=== PATIENT | female | born 1960 | race Caucasian/White ===

== ENCOUNTER → 2016-09-17 | Outpatient (CLI) | payer BC ==
--- NOTE | 2016-09-18 10:12 | MM ---
Reason for exam: screening (asymptomatic). Last mammogram was performed 1 year and 1 month ago. History: Patient is postmenopausal. Family history of breast cancer in maternal grandmother. Took estrogen for 2 years. Physical Findings: A clinical breast exam by your physician is recommended on an annual basis and results should be correlated with mammographic findings. MG Screening Mammo w CAD Bilateral CC and MLO view(s) were taken. Prior study comparison: August 28, 2015, bilateral MG screening mammo w CAD. August 14, 2014, bilateral MG screening mammo w CAD. There are scattered fibroglandular densities. There is no discrete abnormality. No significant changes when compared with prior studies. ASSESSMENT: Negative, BI-RAD 1 RECOMMENDATION: Routine screening mammogram of both breasts in 1 year.
== END | disposition home or self-care (01) ==
LOC: RADMAMWWP 07:21
PROVIDERS: ATTEND Internal Medicine
DX: Z12.31 Encounter for screening mammogram for malignant neoplasm of breast (principal)

== ENCOUNTER 2016-11-15 12:35 | Emergency (ER) | payer BC ==
[2016-11-15] MEDS ORDERED: PANTOPRAZOLE 40 MG/10 ML VIAL IVP STA (13:26)
[2016-11-15] MEDS ORDERED: SODIUM CHLORIDE 0.9% 1,000 ML IV STA (13:26)
[2016-11-15] MEDS ORDERED: RX INFO: IV CONTRAST WAS GIVEN 1 EACH MISC MISCELLANE PRN (13:28)
--- NOTE | 2016-11-15 13:35 | ED ---
Abdominal Pain HPI - General Chief Complaint: Abdominal Pain Stated Complaint: kidney stones Time Seen by Provider: 11/15/16 13:12 Source: patient Mode of arrival: ambulatory Limitations: no limitations - History of Present Illness Initial Comments: 56-year-old female patient presents to emergency department today for evaluation of lower abdominal pain, epigastric pain, and bloody diarrhea. Patient states that symptoms started around 0400 this a.m. Patient denies any history of GI bleed or transfusion in the past. Patient states she went to [facility] where they performed a KUB XR and a urinalysis. They also gave her pain and nausea medications. Her symptoms have improved, however [facility] recommended she come in for a CT scan. Patient did just provide a urine sample, she states when she did this she had an episode of diarrhea with a large blood clot present. Patient denies any dizziness or weakness. She denies any chest, back pain, shortness of breath, hematuria, dysuria, urinary urgency or urinary frequency. She denies any hx of abdominal issues or surgeries. Denies use of anticoagulants. - Related Data Home Medications Medication Instructions Recorded Confirmed Citalopram Hydrobromide 40 mg PO HS 03/26/16 11/15/16 [Citalopram HBr] Ketorolac [Toradol] 30 mg IM ONCE 11/15/16 11/15/16 Metoprolol Tartrate [Lopressor] 25 mg PO BID 11/15/16 11/15/16 Previous Rx's Medication Instructions Recorded Ciprofloxacin HCl [Cipro] 500 mg PO Q12HR #20 tablet 11/15/16 Hydrocodone/Acetaminophen [Culebra 1 tab PO Q6HR PRN #15 tab 11/15/16 5-325] Ondansetron Odt [Zofran Odt] 4 mg PO Q8HR PRN #10 tab 11/15/16 metroNIDAZOLE [Flagyl] 500 mg PO TID #30 tab 11/15/16 Allergies Allergy/AdvReac Type Severity Reaction Status Date / Time No Known Allergies Allergy Verified 11/15/16 13:08 Review of Systems ROS Statement: Those systems with pertinent positive or pertinent negative responses have been documented in the HPI. ROS Other: All systems not noted in ROS Statement are negative. Past Medical History Past Medical History: No Reported History History of Any Multi-Drug Resistant Organisms: None Reported Past Surgical History: Hysterectomy Past Psychological History: Anxiety, Depression Smoking Status: Former smoker Past Alcohol Use History: Heavy Past Drug Use History: None Reported General Exam Limitations: no limitations General appearance: alert, in no apparent distress Head exam: Present: atraumatic, normocephalic, normal inspection Eye exam: Present: normal appearance, PERRL, EOMI. Absent: scleral icterus, conjunctival injection, periorbital swelling ENT exam: Present: normal exam, mucous membranes moist Neck exam: Present: normal inspection. Absent: tenderness, meningismus, lymphadenopathy Respiratory exam: Present: normal lung sounds bilaterally. Absent: respiratory distress, wheezes, rales, rhonchi, stridor Cardiovascular Exam: Present: regular rate, normal rhythm, normal heart sounds. Absent: systolic murmur, diastolic murmur, rubs, gallop, clicks GI/Abdominal exam: Present: soft, tenderness (Epigastric, right lower quadrant, left lower quadrant.), normal bowel sounds. Absent: distended, guarding, rebound, rigid, organomegaly, mass, hernia Rectal exam: Present: normal inspection, normal rectal tone, heme (+) stool, bloody stool. Absent: decreased rectal tone, hemorrhoids, mass, tenderness Extremities exam: Present: normal inspection, full ROM, normal capillary refill. Absent: tenderness, pedal edema, joint swelling, calf tenderness Back exam: Present: normal inspection. Absent: CVA tenderness (R), CVA tenderness (L) Neurological exam: Present: alert, oriented X3, CN II-XII intact Psychiatric exam: Present: normal affect, normal mood Skin exam: Present: warm, dry, intact, normal color. Absent: rash Course Vital Signs 11/15/16 12:38 Temperature 98.1 F Pulse Rate 80 Respiratory 17 Rate Blood Pressure 185/84 O2 Sat by Pulse 96 Oximetry Medical Decision Making - Medical Decision Making 48-year-old female presented emergency from for abdominal pain, rectal bleeding patient appears or clicks CT. Patient be treated as this is bacterial infection. Patient we given Cipro, Flagyl. Return parameters were discussed. Patient's hemoglobin is stable at 15. Patient presents to plan patient will follow-up with Dr. Storey followed was performed her colonoscopies in the past. - Lab Data Result diagrams: 11/15/16 13:49 11/15/16 13:49 Lab Results 11/15/16 11/15/16 11/15/16 Range/Units 13:40 13:49 13:49 WBC 11.2 H (3.8-10.6) k/uL RBC 5.32 (3.80-5.40) m/uL Hgb 15.3 (11.4-16.0) gm/dL Hct 46.7 H (34.0-46.0) % MCV 87.8 (80.0-100.0) fL MCH 28.8 (25.0-35.0) pg MCHC 32.9 (31.0-37.0) g/dL RDW 13.0 (11.5-15.5) % Plt Count 217 (150-450) k/uL Neutrophils % 85 % Lymphocytes % 9 % Monocytes % 4 % Eosinophils % 0 % Basophils % 0 % Neutrophils # 9.5 H (1.3-7.7) k/uL Lymphocytes # 1.0 (1.0-4.8) k/uL Monocytes # 0.5 (0-1.0) k/uL Eosinophils # 0.1 (0-0.7) k/uL Basophils # 0.0 (0-0.2) k/uL PT (9.0-12.0) sec INR (<1.1) APTT (22.0-30.0) sec Sodium 139 (137-145) mmol/L Potassium 4.3 (3.5-5.1) mmol/L Chloride 104 (98-107) mmol/L Carbon Dioxide 24 (22-30) mmol/L Anion Gap 11 mmol/L BUN 12 (7-17) mg/dL Creatinine 0.70 (0.52-1.04) mg/dL Est GFR (MDRD) Af Amer >60 (>60 ml/min/1.73 sqM) Est GFR (MDRD) Non-Af >60 (>60 ml/min/1.73 sqM) Glucose 102 H (74-99) mg/dL Calcium 8.9 (8.4-10.2) mg/dL Total Bilirubin 1.3 (0.2-1.3) mg/dL AST 19 (14-36) U/L ALT 35 (9-52) U/L Alkaline Phosphatase 81 (38-126) U/L Total Protein 7.1 (6.3-8.2) g/dL Albumin 4.3 (3.5-5.0) g/dL Amylase 47 (30-110) U/L Lipase 49 (23-300) U/L Urine Color Urine Appearance (Clear) Urine pH (5.0-8.0) Ur Specific [place] (1.001-1.035) Urine Protein (Negative) Urine Glucose (UA) (Negative) Urine Ketones (Negative) Urine Blood (Negative) Urine Nitrite (Negative) Urine Bilirubin (Negative) Urine Urobilinogen (<2.0) mg/dL Ur Leukocyte Esterase (Negative) Urine RBC (0-5) /hpf Urine WBC (0-5) /hpf Ur Squamous Epith Cells (0-4) /hpf Urine Bacteria (None) /hpf Urine Mucus (None) /hpf Stool Occult Blood Positive H (Negative) Blood Type Blood Type Recheck Antibody Screen Spec Expiration Date 11/15/16 11/15/16 11/15/16 Range/Units 13:49 13:49 13:50 WBC (3.8-10.6) k/uL RBC (3.80-5.40) m/uL Hgb (11.4-16.0) gm/dL Hct (34.0-46.0) % MCV (80.0-100.0) fL MCH (25.0-35.0) pg MCHC (31.0-37.0) g/dL RDW (11.5-15.5) % Plt Count (150-450) k/uL Neutrophils % % Lymphocytes % % Monocytes % % Eosinophils % % Basophils % % Neutrophils # (1.3-7.7) k/uL Lymphocytes # (1.0-4.8) k/uL Monocytes # (0-1.0) k/uL Eosinophils # (0-0.7) k/uL Basophils # (0-0.2) k/uL PT 10.6 (9.0-12.0) sec INR 1.1 (<1.1) APTT 24.4 (22.0-30.0) sec Sodium (137-145) mmol/L Potassium (3.5-5.1) mmol/L Chloride (98-107) mmol/L Carbon Dioxide (22-30) mmol/L Anion Gap mmol/L BUN (7-17) mg/dL Creatinine (0.52-1.04) mg/dL Est GFR (MDRD) Af Amer (>60 ml/min/1.73 sqM) Est GFR (MDRD) Non-Af (>60 ml/min/1.73 sqM) Glucose (74-99) mg/dL Calcium (8.4-10.2) mg/dL Total Bilirubin (0.2-1.3) mg/dL AST (14-36) U/L ALT (9-52) U/L Alkaline Phosphatase (38-126) U/L Total Protein (6.3-8.2) g/dL Albumin (3.5-5.0) g/dL Amylase (30-110) U/L Lipase (23-300) U/L Urine Color Yellow Urine Appearance Cloudy H (Clear) Urine pH 5.5 (5.0-8.0) Ur Specific [place] 1.022 (1.001-1.035) Urine Protein 1+ H (Negative) Urine Glucose (UA) Negative (Negative) Urine Ketones Negative (Negative) Urine Blood Small H (Negative) Urine Nitrite Negative (Negative) Urine Bilirubin Negative (Negative) Urine Urobilinogen 2.0 (<2.0) mg/dL Ur Leukocyte Esterase Negative (Negative) Urine RBC 1 (0-5) /hpf Urine WBC 3 (0-5) /hpf Ur Squamous Epith Cells 4 (0-4) /hpf Urine Bacteria Rare H (None) /hpf Urine Mucus Many H (None) /hpf Stool Occult Blood (Negative) Blood Type A Negative Blood Type Recheck No Antibody Screen NEGATIVE Spec Expiration Date 11/18/2016234811/15/16 14:44 EKG performed at 13:56 sinus rhythm with PVC, rate of 80, OK interval 138, QRS duration 94, QT/QTC 416/479 Disposition Clinical Impression: Colitis, Rectal bleeding Disposition: HOME SELF-CARE Condition: Stable Instructions: Colitis (ED) Additional Instructions: Please return to the Emergency Department if symptoms worsen or any other concerns. Prescriptions: Ciprofloxacin HCl [Cipro] 500 mg PO Q12HR #20 tablet Hydrocodone/Acetaminophen [Culebra 5-325] 1 tab PO Q6HR PRN #15 tab PRN Reason: Pain Ondansetron Odt [Zofran Odt] 4 mg PO Q8HR PRN #10 tab PRN Reason: Nausea metroNIDAZOLE [Flagyl] 500 mg PO TID #30 tab Referrals: Garo Winslow MD [Primary Care Provider] - 1-2 days Brit Mcgrath MD [STAFF PHYSICIAN] - 1-2 days Time of Disposition: 14:44
[2016-11-15 13:59] LABS: Basophils % (A) 0 %; CH 29.5; CHCM 33.7; Eosinophils # (A) 0.1 k/uL (0-0.7); Eosinophils % (A) 0 %; HCT 46.7 % (34.0-46.0); HDW 2.56; HGB 15.3 gm/dL (11.4-16.0); Luc # (Auto) 0.11; Luc % (Auto) 1; Lymphocytes % (A) 9 %; MCH 28.8 pg (25.0-35.0); MCHC 32.9 g/dL (31.0-37.0); MCV 87.8 fL (80.0-100.0); Mean Platelet Volume 6.4; Monocytes # (A) 0.5 k/uL (0-1.0); Monocytes % (A) 4 %; Neutrophils # (A) 9.5 k/uL (1.3-7.7); Neutrophils % (A) 85 %; RBC 5.32 m/uL (3.80-5.40); WBC 11.2 k/uL (3.8-10.6); WBC (Perox) 10.93
[2016-11-15 14:04] LABS: Appearance,Urine Cloudy (Clear); Bacteria,Urine Rare /hpf; Bilirubin,Urine Negative (Negative); Glucose,Urine (UA) Negative (Negative); Ketones,Urine Negative (Negative); Leukocyte Esterase,Urine Negative (Negative); Mucus,Urine Many /hpf; Nitrite,Urine Negative (Negative); PH, Urine 5.5 (5.0-8.0); Particle Count 11893; Protein,Urine 1+ (Negative); RBC,Urine 1 /hpf (0-5); Specific Gravity,Urine 1.022 (1.001-1.035); Squamous Epithelial Cell,Urine 4 /hpf (0-4); UA Billing (MACRO vs. MICRO) MICRO; WBC,Urine 3 /hpf (0-5)
[2016-11-15 14:08] LABS: INR 1.1 (<1.1)
[2016-11-15 14:09] LABS: Partial Thromboplastin Time 24.4 sec (22.0-30.0); Prothrombin Time 10.6 sec (9.0-12.0)
[2016-11-15 14:10] LABS: ALT 35 U/L (9-52); AST 19 U/L (14-36); Alkaline Phosphatase 81 U/L (38-126); Amylase 47 U/L (30-110); Anion Gap 11 mmol/L; Blood Urea Nitrogen 12 mg/dL (7-17); Calcium 8.9 mg/dL (8.4-10.2); Carbon Dioxide 24 mmol/L (22-30); Chloride 104 mmol/L (98-107); Glucose 102 mg/dL (74-99); Non-African American GFR(MDRD) >60 (>60 ml/min/1.73 sqM); Potassium 4.3 mmol/L (3.5-5.1); Sodium 139 mmol/L (137-145); Total Bilirubin 1.3 mg/dL (0.2-1.3); Total Protein 7.1 g/dL (6.3-8.2)
--- NOTE | 2016-11-15 14:35 | CT ---
EXAMINATION TYPE: CT abdomen pelvis w con DATE OF EXAM: 11/15/2016 2:24 PM COMPARISON: NONE HISTORY: abdominal pain, rectal bleed CT DLP: 1429.9 mGycm Automated exposure control for dose reduction was used. TECHNIQUE: Helical acquisition of images was performed from the lung bases through the pelvis. CONTRAST: Performed without Oral Contrast and with IV Contrast, patient injected with 100 mL of Omnipaque 300. FINDINGS: There is minimal pleural thickening at the left posterior lung base. There is no pleural effusion. Th ere is no pericardial effusion. Liver shows no focal defect. Bile ducts are not dilated. There is no pancreatic mass. There is a 1 cm cyst in the spleen. There is no adrenal mass. Kidneys show satisfactory contrast opacification. There is no hydronephrosi s. There is no retroperitoneal adenopathy. There is mild wall thickening involving the splenic flexur e of the colon. There is no ascites. Bladder is almost empty. There is no pelvic mass. There are a few sigmoid diverticula. There is no ev idence of diverticulitis. Appendix appears normal. I see no bony destructive process. IMPRESSION: THERE IS MILD EDEMA AND WALL THICKENING INVOLVING THE SPLENIC FLEXURE AND DESCENDING COLON CONSISTENT WITH NONSPECIFIC COLITIS.
[2016-11-15 15:16] VITALS: BP 157/73; PULSE 75; RESP 16; TEMP 97
== END 2016-11-15 15:15 | disposition home or self-care (01) ==
LOC: EC 12:35
DX: K52.9 Noninfective gastroenteritis and colitis, unspecified (principal); K62.5 Hemorrhage of anus and rectum; F32.9 Major depressive disorder, single episode, unspecified; Z87.891 Personal history of nicotine dependence; Z79.1 Long term (current) use of non-steroidal anti-inflammatories (NSAID); Z79.899 Other long term (current) drug therapy; Z90.710 Acquired absence of both cervix and uterus
CPT/HCPCS: 99284; 96374; 96361; 36415; 93005; 86900; 86901; 80053; 82150; 83690; 85025; 85610; 85730; 86850; 82272; 81001; 74177; Q9967; C9113

== ENCOUNTER → 2017-10-27 | Outpatient (CLI) | payer BC ==
--- NOTE | 2017-11-01 10:19 | MM ---
Reason for exam: screening (asymptomatic). Last mammogram was performed 1 year and 1 month ago. History: Patient is postmenopausal. Family history of breast cancer in maternal grandmother. Took estrogen for 2 years. Physical Findings: A clinical breast exam by your physician is recommended on an annual basis and results should be correlated with mammographic findings. MG Screening Mammo w CAD Bilateral CC and MLO view(s) were taken. Prior study comparison: September 17, 2016, bilateral MG screening mammo w CAD. August 28, 2015, bilateral MG screening mammo w CAD. There are scattered fibroglandular densities. No significant changes when compared with prior studies. ASSESSMENT: Negative, BI-RAD 1 RECOMMENDATION: Routine screening mammogram of both breasts in 1 year.
== END | disposition home or self-care (01) ==
LOC: RADMAMWWP 07:44
PROVIDERS: ATTEND Internal Medicine
DX: Z12.31 Encounter for screening mammogram for malignant neoplasm of breast (principal)
CPT/HCPCS: 77067

== ENCOUNTER → 2018-11-23 | Outpatient (CLI) | payer BC ==
--- NOTE | 2018-11-25 10:06 | MM ---
Reason for exam: screening (asymptomatic). Last mammogram was performed 1 year and 1 month ago. History: Patient is postmenopausal. Family history of breast cancer in maternal grandmother. Took estrogen for 2 years. Physical Findings: A clinical breast exam by your physician is recommended on an annual basis and results should be correlated with mammographic findings. MG Screening Mammo w CAD Bilateral CC and MLO view(s) were taken. Prior study comparison: October 27, 2017, bilateral MG screening mammo w CAD. September 17, 2016, bilateral MG screening mammo w CAD. There are scattered fibroglandular densities. No significant changes when compared with prior studies. ASSESSMENT: Benign, BI-RAD 2 RECOMMENDATION: Routine screening mammogram of both breasts in 1 year.
== END | disposition home or self-care (01) ==
LOC: RADMAMWWP 15:01
PROVIDERS: ATTEND Internal Medicine
DX: Z12.31 Encounter for screening mammogram for malignant neoplasm of breast (principal)
CPT/HCPCS: 77067

== ENCOUNTER → 2019-08-15 | Outpatient (CLI) | payer BC ==
[2019-08-15 16:43] LABS: T4, Free (Free Thyroxine) 1.2 ng/dL (0.80-1.80)
== END | disposition home or self-care (01) ==
LOC: LABWHC1 09:50
PROVIDERS: ATTEND Psychiatry & Neurology Psychiatry
DX: F33.1 Major depressive disorder, recurrent, moderate (principal); F41.9 Anxiety disorder, unspecified
CPT/HCPCS: 36415; 84439; 84443; 84481

== ENCOUNTER → 2020-02-14 | Outpatient (CLI) | payer BC ==
--- NOTE | 2020-02-14 11:04 | MM ---
Reason for exam: screening (asymptomatic). Last mammogram was performed 1 year and 3 months ago. History: Patient is postmenopausal. Family history of breast cancer in maternal grandmother. Took estrogen for 2 years. Physical Findings: A clinical breast exam by your physician is recommended on an annual basis and results should be correlated with mammographic findings. MG Screening Mammo w CAD Bilateral CC, MLO, and XCCL view(s) were taken. Prior study comparison: November 23, 2018, bilateral MG screening mammo w CAD. October 27, 2017, bilateral MG screening mammo w CAD. There are scattered fibroglandular densities. No significant changes when compared with prior studies. ASSESSMENT: Benign, BI-RAD 2 RECOMMENDATION: Routine screening mammogram of both breasts in 1 year.
== END | disposition home or self-care (01) ==
LOC: RADMAMWWP 07:32
PROVIDERS: ATTEND Family Medicine
DX: Z12.31 Encounter for screening mammogram for malignant neoplasm of breast (principal)
CPT/HCPCS: 77067

== ENCOUNTER → 2020-02-14 | Outpatient (CLI) | payer BC ==
--- NOTE | 2020-02-14 17:04 | CONS ---
CONSULTATION DATE OF SERVICE: 02/14/2020 This patient is a 59-year-old lady who has been evaluated in Sleep Center for obstructive sleep apnea-hypopnea syndrome. HISTORY OF PRESENT ILLNESS/SLEEP-WAKE EVALUATION: Patient was diagnosed with obstructive sleep apnea 3 years ago; according to her, at that time her apnea-hypopnea index by results of a home sleep test was 37 times per hour. She started to use CPAP equipment, but then she stopped using it, and restarted using it recently. After she started to use her equipment, she has been sleeping much better. Her sleep schedule is from 9 p.m. to 7:30 a.m. on weekdays and from 11 p.m. until 9 a.m. on weekends. No problem with falling asleep, although she has a TV in the bedroom. She sleeps on the side position. She wakes up from sleep 2 times with nocturia. No history of hypnagogic hallucinations, sleep paralysis or cataplexy. Positive history of awakenings with dry mouth, panic attack, heartburn, restless legs, sleeptalking. During the day, she has problems with memory, anxiety, depression, concentration, and worries about her sleep. I checked her CPAP unit. Range of the pressure is from 5 to 15 with average pressure 14.3. Patient used it 4/30 nights last month for more than 4 hours, with average usage 5.7 hours per night. Leak is 13 L/minute, which is in normal range. Apnea-hypopnea index is only 2.2, which is normal. PAST MEDICAL HISTORY: Positive for hypertension, hyperlipidemia, depression. PAST SURGICAL HISTORY: Total hysterectomy. MEDICATIONS: Wellbutrin, Lopressor, Abilify, Lipitor, Dyazide. SOCIAL HISTORY: Positive for smoking one pack a day for 5 years; quit 1982. Alcohol consumption occasional. FAMILY HISTORY: History of cancer in her mother. Acid reflux in her father. PHYSICAL EXAMINATION: GENERAL: A pleasant lady without distress. VITAL SIGNS: BP 119/66, HR 60, RR 16, height 5 feet 4 inches, weight 229, BMI 39.3, temperature 98.5, oxygen saturation at room air 95%. HEENT: PERRLA, EOMI. Evaluation of oropharynx showed tongue protrudes midline. Low position of soft palate. NECK: Supple. No JVD. Thyroid is not palpable. Wide neck; 17-1/2 inches in circumference. LUNGS: Clear to percussion and to auscultation. Good air exchange. No wheezing or rhonchi. HEART: S1, S2 regular. No murmurs, gallops or rubs. ABDOMEN: Obese. EXTREMITIES: No clubbing or cyanosis. C WPF DEVELOPER: Awake, alert, and oriented X3. Cranial nerves 2 to 7 intact. There is no fasciculation or atrophy. noted. No focal deficits observed. IMPRESSION: 1. Obstructive sleep apnea-hypopnea syndrome for 3 years. Recently the patient restarted the use of her CPAP equipment. Significant increase of weight, according to patient, in the amount of 40 pounds since previous sleep study. 2. Obesity; body mass index 39.3. 3. Hypertension. 4. Hyperlipidemia. 5. Depression. 6. Status post total hysterectomy. PLAN: 1. Home sleep apnea test for evaluation of patient's breathing at the present time after a significant increase in weight. 2. Losing weight. 3. Patient will continue to use her CPAP equipment every night for the whole night, at present on the same regimen. 4. I will get results of previous sleep study. 5. Follow-up visit in several months to recheck the patient's compliance with treatment and clinical response to treatment and to make any necessary adjustments. Thank you very much for allowing me to participate in the management of your patient. Sincerely, Naveen Palacios MD, PhD, FAASM Diplomat of [place] [employer] [place] [employer] Still [employer]ner of [facility] [place] [facility]OD[facility] / JANETN: [id number] /
== END | disposition home or self-care (01) ==
LOC: SLEEP 11:32
PROVIDERS: ATTEND Internal Medicine
DX: G47.33 Obstructive sleep apnea (adult) (pediatric) (principal); I10 Essential (primary) hypertension; E78.5 Hyperlipidemia, unspecified; E66.9 Obesity, unspecified; F32.9 Major depressive disorder, single episode, unspecified; Z79.899 Other long term (current) drug therapy; Z79.891 Long term (current) use of opiate analgesic; Z68.39 Body mass index [BMI] 39.0-39.9, adult; Z90.710 Acquired absence of both cervix and uterus; Z99.89 Dependence on other enabling machines and devices
CPT/HCPCS: 99211

== ENCOUNTER → 2020-03-07 | Outpatient (CLI) | payer BC ==
--- NOTE | 2020-03-08 04:54 | SFUN ---
SLEEP CENTER FOLLOW UP NOTE DATE OF SERVICE: 03/07/2020 This 59-year-old lady recently had home sleep apnea test and came for follow-up visit. I discussed with her results of home sleep apnea test in details. Test showed severe sleep apnea with high apnea-hypopnea index of 61.9 with oxygen desaturation to very low 59.8%, and oxygen levels was below or equal 88% for 253 minutes. The patient is not able to use her machine because she feels that in the beginning when she put machine on the pressure is too high. I checked CPAP unit, range of the pressure 5 to 15 and REM is on automatic regimen. Leak is 19 L/minute. Presently, reading from the machine showed apnea-hypopnea index 13.3. [place] Sleepiness Scale today increased to 11. MEDICATIONS: Wellbutrin, Lopressor, Abilify, Lipitor, Dyazide. PHYSICAL EXAMINATION: GENERAL lady without distress. Vital SIGNS: BP 138/82, HR 74, RR 16, oxygen saturation at room air 96%. HEENT: PERRLA, EOMI. Oropharynx low position of soft palate. NECK: Supple, no JVD. Thyroid is not palpable. LUNGS: Clear to percussion and to auscultation. Good air exchange. No wheezing or rhonchi. HEART: S1, S2 regular. No murmurs, gallops, or rubs. ABDOMEN: Obese. EXTREMITIES: No clubbing or cyanosis. RIG SUPERVISOR: Awake, alert, and oriented X3. Cranial nerves 2 to 7 intact. There is no fasciculation or atrophy. noted. No focal deficits observed. IMPRESSION: 1. Severe obstructive sleep apnea-hypopnea syndrome; apnea-hypopnea index 61.9 with severe oxygen desaturation. 2. Obesity. 3. Hypertension. 4. Hyperlipidemia. 5. Depression. 6. Status post hysterectomy. PLAN: 1. I changed ramp to maximal time frame period 40 minutes. 2. Patient should use equipment every night for the whole night, will show patient different styles. We will consider to use different style of mask during the year, which goes to the nose, below the nose and covers the mouth. 3. Patient will continue to use PAP equipment every night for the whole night. 4. Sleep hygiene with regular time in bed for at least 7-1/2 to 8 hours. 5. Precautions related to driving. No driving if feeling sleepiness. 6. I will maintain all necessary prescription for PAP supplies including mask, tube, filters. 7. Watching weight. 8. No driving if feeling sleepiness. 9. Follow-up visit in 3 months. Thank you very much for allowing me to participate in management of your patient. Sincerely, Naveen Palacios MD, PhD, FAASM Diplomat of [place] [employer] [place] [employer] Embedded Software Development Engineer of [facility] [place] [facility]OD[facility] / JANETN: [id number] /
== END | disposition home or self-care (01) ==
LOC: SLEEP 16:52
PROVIDERS: ATTEND Internal Medicine
DX: G47.33 Obstructive sleep apnea (adult) (pediatric) (principal); I10 Essential (primary) hypertension; E78.5 Hyperlipidemia, unspecified; F32.9 Major depressive disorder, single episode, unspecified; E66.9 Obesity, unspecified; Z99.89 Dependence on other enabling machines and devices; Z90.710 Acquired absence of both cervix and uterus

== ENCOUNTER → 2020-05-23 | Outpatient (CLI) | payer BC ==
--- NOTE | 2020-05-24 01:42 | SFUN ---
SLEEP CENTER FOLLOW UP NOTE DATE OF SERVICE: 05/23/2020 This 59-year-old lady has been followed in Sleep Center for treatment of obstructive sleep apnea-hypopnea syndrome. The patient continues to use her CPAP equipment, but has difficulties with usage of machine. She feels that pressure is too high for her and sometimes she wakes up with high pressure. Her [place] Sleepiness Scale today is 9. I reviewed results of recent home sleep apnea test with her that showed severe obstructive sleep apnea with apnea-hypopnea index 61.9 and oxygen desaturation to 59% and oxygen saturation was below normal for 253 minutes. I checked patient's CPAP unit. Range of the pressure 5 to 18, average pressure 12.1. Usage is 19 out of 30 nights and 12 out 30 nights for more than 4 hours with average amount of hours 5.5 hours per night. Leak is 34 L/minute. Apnea-hypopnea index is 4.9, which is borderline. Ramp is zero. MEDICATIONS: Strattera 40 mg once a day in the morning, metformin 500 mg twice a day, Dyazide 25 mg- 37.5 mg capsules once a day, aripiprazole 2 mg once a day, bupropion 300 mg once a day, metoprolol 50 mg twice a day, atorvastatin 10 mg once a day. PHYSICAL EXAMINATION: GENERAL: Patient in no distress. VITAL SIGNS: BP 129/71, HR 82, RR 15, height 5 feet 3-1/2 inches, weight 215, BMI 37.4, temperature 98.1, oxygen saturation at room air 94%, HEENT: PERRLA, EOMI, evaluation of oropharynx low position of soft palate. NECK: Supple, no JVD. Thyroid is not palpable. LUNGS: Clear to percussion and to auscultation. Good air exchange. No wheezing or rhonchi. HEART: S1, S2 regular. No murmurs, gallops, or rubs. ABDOMEN: Obese. EXTREMITIES: No clubbing or cyanosis. DESKTOP SPECIALIST: Awake, alert, and oriented X3. Cranial nerves 2 to 7 intact. There is no fasciculation or atrophy. noted. No focal deficits observed. IMPRESSION: 1. Severe obstructive sleep apnea-hypopnea syndrome; apnea-hypopnea index 61.9. The patient is using her CPAP equipment, but has difficulties with usage. 2. Obesity. 3. Hypertension. 4. Hyperlipidemia. 5. Depression. 6. Status post total hysterectomy. PLAN: 1. Patient will continue to use PAP equipment every night for the whole night. 2. Sleep hygiene with regular time in bed for at least 7-1/2 to 8 hours. 3. Precautions related to driving. No driving if feeling sleepiness. 4. I will maintain all necessary prescription for PAP supplies including mask, tube, filters. 5. Watching weight. 6. No driving if feeling sleepiness. 7. Follow-up visit in 6 months or earlier if patient has any problems. 8. I changed the regimen of the machine to the range of 5 to 15 cm of water and I changed ramp to 45 minutes. Thank you very much for allowing me to participate in management of your patient. Sincerely, Naveen Palacios MD, PhD, FAASM Diplomat of [place] [employer] [place] [employer] Licensed Nuclear Operator of [facility] [place] [facility] / JUAN PABLO: [id number] /
== END | disposition home or self-care (01) ==
LOC: SLEEP 16:43
PROVIDERS: ATTEND Internal Medicine
DX: G47.33 Obstructive sleep apnea (adult) (pediatric) (principal); I10 Essential (primary) hypertension; E78.5 Hyperlipidemia, unspecified; F32.9 Major depressive disorder, single episode, unspecified; E66.9 Obesity, unspecified; Z90.710 Acquired absence of both cervix and uterus; Z79.899 Other long term (current) drug therapy; Z79.84 Long term (current) use of oral hypoglycemic drugs; Z99.89 Dependence on other enabling machines and devices

== ENCOUNTER → 2021-04-19 | Outpatient (CLI) | payer BC ==
[2021-04-19 12:46] LABS: Amorphous Sediment,Urine Rare /hpf; Appearance,Urine Turbid (Clear); Bacteria,Urine Many /hpf; Bilirubin,Urine Negative (Negative); Blood,Urine Trace (Negative); Color,Urine Yellow; Glucose,Urine (UA) Negative (Negative); Hyaline Casts,Urine 3 /lpf (0-2); Ketones,Urine Negative (Negative); Leukocyte Esterase,Urine Large (Negative); Mucus,Urine Occasional /hpf; Nitrite,Urine Positive (Negative); PH, Urine 5.5 (5.0-8.0); Protein,Urine Trace (Negative); RBC,Urine 8 /hpf (0-5); Squamous Epithelial Cell,Urine 41 /hpf (0-4); Urobilinogen,Urine <2.0 mg/dL (<2.0); WBC,Urine 50 /hpf (0-5)
[2021-04-19 17:12] LABS: Basophils # (A) 0.03 X 10*3/uL (0.00-0.10); Basophils % (A) 0.5 %; Eosinophils % (A) 1.6 %; HGB 12.6 g/dL (12.0-15.0); Lymphocytes # (A) 1.39 X 10*3/uL (0.90-5.00); Lymphocytes % (A) 22.4 %; MCH 26.1 pg (27.0-32.0); MCHC 30.7 g/dL (32.0-37.0); MCV 84.9 fL (80.0-97.0); Monocytes # (A) 0.23 X 10*3/uL (0.20-1.00); Monocytes % (A) 3.7 %; Neutrophils # (A) 4.41 X 10*3/uL (1.80-7.70); Neutrophils % (A) 71.2 %; Platelet Count 234 X 10*3/uL (140-440); RBC 4.83 X 10*6/uL (4.10-5.20); RDW 14.7 % (11.5-14.5)
[2021-04-20 14:00] LABS: % Iron Saturation 19.32 (12.00-45.00); African American GFR (CKD) 39.6 (60.0-200.0); Albumin 4.2 g/dL (3.80-4.90); Albumin/Globulin Ratio 1.62 (1.60-3.17); Anion Gap 16.7 mmol/L (4.00-12.00); BUN/Creat Ratio 18.75 Ratio (12.00-20.00); Calcium 9.2 mg/dL (8.7-10.3); Carbon Dioxide 22.3 mmol/L (21.6-31.8); Globulin 2.6 g/dL (1.6-3.3); Magnesium 1.8 mg/dL (1.5-2.4); Non-African American GFR(CKD) 34.2 (60.0-200.0); Potassium 3.9 mmol/L (3.5-5.5); Total Protein 6.8 g/dL (6.2-8.2); Uric Acid 7.3 mg/dL (2.9-7.7)
[2021-04-20 14:07] LABS: Ferritin 26.6 ng/mL (10.0-291.0); Luteinizing Hormone 34.9 mIU/mL
[2021-04-20 14:11] LABS: Folate, Serum 8.8 ng/mL
[2021-04-22 15:45] LABS: EBV-EBNA(IgG) 2.9 AI; EBV-VCA (IgG) 4.4 AI; EBV-VCA (IgM) 0.3 AI
== END | disposition home or self-care (01) ==
LOC: LABWHC1 11:03
PROVIDERS: ATTEND Family Medicine
DX: E87.8 Other disorders of electrolyte and fluid balance, not elsewhere classified (principal); E78.5 Hyperlipidemia, unspecified; D51.9 Vitamin B12 deficiency anemia, unspecified; E55.9 Vitamin D deficiency, unspecified; R53.82 Chronic fatigue, unspecified
CPT/HCPCS: 36415; 80053; 81001; 82306; 82533; 82550; 82607; 82728; 82746; 83002; 83540; 83550; 83735; 84207; 84425; 84443; 84550; 85025; 86038; 86644; 86645; 86663; 86664; 86665

== ENCOUNTER → 2021-04-30 | Outpatient (CLI) | payer BC ==
--- NOTE | 2021-04-30 14:32 | US ---
EXAMINATION TYPE: US kidneys/renal and bladder DATE OF EXAM: 04/30/2021 COMPARISON: NONE CLINICAL HISTORY: N28.9 Low kidney function. EXAM MEASUREMENTS: Right Kidney: 10.4 x 3.7 x 4.6 cm Left Kidney: 11.0 x 4.7 x 4.6 cm Right Kidney: echogenic focus measuring 0.8 x 0.5 x 0.5cm. This is not identified on the prior CT o f 11/15/2016. Consider follow-up CT abdomen and pelvis Left Kidney: cyst measuring 1.4 x 1.0 x 1.4cm Bladder: wnl IMPRESSION: 1. Echogenic area within the right renal cortex. Consider follow-up CT abdomen and pelvis. 2. Left cortical renal cyst
== END | disposition home or self-care (01) ==
LOC: RADUSWWP 13:31
PROVIDERS: ATTEND Family Medicine
DX: N28.1 Cyst of kidney, acquired (principal)
CPT/HCPCS: 76770

== ENCOUNTER → 2021-05-14 | Outpatient (CLI) | payer BC ==
--- NOTE | 2021-05-14 20:17 | SFUN ---
SLEEP CENTER FOLLOW UP NOTE DATE OF SERVICE: 05/14/2021 60-year-old lady has been followed in Sleep Center for treatment of obstructive sleep apnea-hypopnea syndrome. The patient's previous visit was 1 year ago. The patient continued to use her machine but feels that the pressure is too high for her and she has difficulties. [place] Sleepiness Scale today increased to 12. I checked her CPAP unit. Range of the pressure 5-15. Average pressure 8.9 cm of water, ramp is 45 minutes. During the previous visit, I increased it to the maximum. EPR is 3. Usage is 6 out of 30 nights and 3 out of 30 nights for more than 4 hours. High leak 6 L/minute. Apnea-hypopnea index increased to 15.8. During previous visit 1 year ago, it was 4.9. Leak at that visit was 34 L/minute. MEDICATIONS: Strattera 140 mg once a day, Abilify 5 mg once a day, atorvastatin 10 mg once a day, bupropion 300 mg once a day, Triamterene 25 mg once a day, metoprolol 50 mg twice a day. PHYSICAL EXAMINATION: GENERAL: Patient in no distress. BP 116/79, HR 82, RR 12, height 5 feet 3-1/2 inches, weight 207.6 pounds, body mass index 36.2, temperature 97.0, oxygen saturation at room air 96%. Oropharynx: Low position of soft palate. NECK: Supple, no JVD. Thyroid is not palpable. LUNGS: Clear to percussion and to auscultation. Good air exchange. No wheezing or rhonchi. HEART: S1, S2 regular. No murmurs, gallops, or rubs. ABDOMEN: Obese. Soft and nontender. Bowel sounds are present. No organomegaly appreciated. EXTREMITIES: No clubbing or cyanosis. QA DEVELOPER: Awake, alert, and oriented X3. Cranial nerves 2 to 7 intact. There is no fasciculation or atrophy. noted. No focal deficits observed. IMPRESSION: 1. Severe obstructive sleep apnea-hypopnea syndrome. Apnea-hypopnea index 61.9. The patient has difficulties with CPAP, feels the pressure is too high. Apnea-hypopnea index reading from the machine during this visit increased to 15.8. 2. Obesity. Patient weight is 8 pounds less than during previous visit. 3. Hypertension. 4. Hyperlipidemia. 5. Depression. 6. Status post total hysterectomy. PLAN: 1. I changed the pressure range in the machine to the range 5 to 10 cm of water. 2. The patient should get her replacement for the mask immediately that is a decreased level of leak and subsequently improved apnea-hypopnea index. 3. Patient will continue to use PAP equipment every night for the whole night. 4. Sleep hygiene with regular time in bed for at least 7-1/2 to 8 hours. 5. Precautions related to driving. No driving if feeling sleepiness. 6. I will maintain all necessary prescription for PAP supplies including mask, tube, filters. 7. Watching weight. 8. Follow-up visit in 2 months or earlier if patient has any problems. I spent with the patient in documentation 30 minutes. Thank you very much for allowing me to participate in management of your patient. Sincerely, Naveen Palacios MD, PhD, FAASM Diplomat of [place] [employer] Sleep Medicine Board of [place] [employer] Mobile Application Tester of [facility] [place] MMODL / JANETN: [id number] /
== END ==
LOC: SLEEP 14:04
PROVIDERS: ATTEND Internal Medicine
DX: G47.33 Obstructive sleep apnea (adult) (pediatric) (principal); E66.9 Obesity, unspecified; E78.5 Hyperlipidemia, unspecified; I10 Essential (primary) hypertension; F32.9 Major depressive disorder, single episode, unspecified; Z90.711 Acquired absence of uterus with remaining cervical stump; Z99.89 Dependence on other enabling machines and devices; Z68.36 Body mass index [BMI] 36.0-36.9, adult; Z79.899 Other long term (current) drug therapy; Z87.891 Personal history of nicotine dependence

== ENCOUNTER → 2021-05-14 | Outpatient (CLI) | payer BC ==
--- NOTE | 2021-05-15 07:39 | CT ---
EXAMINATION TYPE: CT abdomen pelvis wo con DATE OF EXAM: 05/14/2021 COMPARISON: 217 HISTORY: Renal lesion, pt not sure which side CT DLP: 1015 mGycm Examination of the solid and hollow viscera is limited given the lack of contrast. FINDINGS: LUNG BASES: No evidence for nodule. No evidence for infiltrate. LIVER/GB: The gallbladder is unremarkable. No space-occupying hepatic lesion. PANCREAS: No pancreatic mass identified. No inflammatory process seen. SPLEEN: No evidence for splenomegaly. No intrasplenic lesions seen. ADRENALS: No adrenal nodules identified. No evidence for thickening. KIDNEYS: No evidence for renal mass. No nephrolithiasis. No hydronephrosis. BOWEL: Appendix has a normal appearance. No evidence of bowel obstruction. No inflammatory process. Lymph nodes: No evidence for adenopathy greater than 1 cm. Abdominal aorta: Atheromatous changes seen. No evidence for aneurysm. Genital organs: No significant abnormality. Other: No significant abnormality. IMPRESSION: 1. No distinct renal lesion appreciated.
== END | disposition home or self-care (01) ==
LOC: RADCTMAIN 18:25
PROVIDERS: ATTEND Family Medicine
DX: N28.9 Disorder of kidney and ureter, unspecified (principal)
CPT/HCPCS: 74176

== ENCOUNTER → 2021-05-15 | Outpatient (CLI) | payer BC ==
--- NOTE | 2021-05-19 11:01 | MM ---
Reason for exam: screening (asymptomatic). Last mammogram was performed 1 year and 3 months ago. History: Patient is postmenopausal. Family history of breast cancer in maternal grandmother. Took hormonal contraceptives for 2 years. Took estrogen for 2 years. Physical Findings: A clinical breast exam by your physician is recommended on an annual basis and results should be correlated with mammographic findings. MG Screening Mammo w CAD Bilateral CC and MLO view(s) were taken. Prior study comparison: February 14, 2020, bilateral MG screening mammo w CAD. November 23, 2018, bilateral MG screening mammo w CAD. October 27, 2017, bilateral MG screening mammo w CAD. There are scattered fibroglandular densities. No significant changes when compared with prior studies. ASSESSMENT: Benign, BI-RAD 2 RECOMMENDATION: Routine screening mammogram of both breasts in 1 year.
== END | disposition home or self-care (01) ==
LOC: RADMAMWWP 15:14
PROVIDERS: ATTEND Family Medicine
DX: Z12.31 Encounter for screening mammogram for malignant neoplasm of breast (principal); Z80.3 Family history of malignant neoplasm of breast; Z78.0 Asymptomatic menopausal state
CPT/HCPCS: 77067

== ENCOUNTER → 2022-02-24 | Outpatient (CLI) | payer BC ==
--- NOTE | 2022-02-24 13:35 | XR ---
EXAMINATION TYPE: XR chest 2V DATE OF EXAM: 02/24/2022 COMPARISON: Chest x-ray 03/26/2016 HISTORY: Z 86.16, chest pain and shortness of breath TECHNIQUE: Frontal and lateral views of the chest are obtained. FINDINGS: There is no focal air space opacity, pleural effusion, or pneumothorax seen. The cardiac silhouette size is within normal limits. The osseous structures are intact, there is thoracic spond ylosis. IMPRESSION: No acute cardiopulmonary process.
== END | disposition home or self-care (01) ==
LOC: RADXRMAIN 11:21
PROVIDERS: ATTEND Family Medicine
DX: R07.9 Chest pain, unspecified (principal); Z86.16 Personal history of COVID-19
CPT/HCPCS: 71046

== ENCOUNTER → 2022-03-12 | Outpatient (CLI) | payer BC ==
[2022-03-12 20:50] LABS: Estradiol 47.6 pg/mL
== END | disposition home or self-care (01) ==
LOC: LABWHC1 13:33
PROVIDERS: ATTEND Specialist
DX: I10 Essential (primary) hypertension (principal); E34.9 Endocrine disorder, unspecified; E55.9 Vitamin D deficiency, unspecified; E03.9 Hypothyroidism, unspecified; E78.5 Hyperlipidemia, unspecified
CPT/HCPCS: 36415; 82670; 83001; 84144; 84403; 84481

== ENCOUNTER 2022-06-09 10:39 | Emergency (ER) | payer BC ==
[2022-06-09 10:44] VITALS: RESP 18
[2022-06-09 10:49] LABS: Glucose,Whole Blood 137 mg/dL (70-110)
[2022-06-09] MEDS ORDERED: SODIUM CHLORIDE 0.9% 500 ML 500 ML IV STA (10:49)
--- NOTE | 2022-06-09 10:56 | ED ---
Syncope HPI - General Chief Complaint: Syncope Stated Complaint: syncope Time Seen by Provider: 06/09/22 10:43 Source: patient Mode of arrival: wheelchair Limitations: no limitations - History of Present Illness MD Complaint: loss of consciousness -: minutes(s) Prodromal Symptoms: lightheaded -: second(s) Witnessed: yes - by bystander Injuries Sustained Associated with Event: None Current Symptoms: back to baseline Context: standing up Treatments Prior to Arrival: none - Related Data Home Medications Medication Instructions Recorded Confirmed Metoprolol Tartrate [Lopressor] 50 mg PO BID 11/15/16 05/16/20 ARIPiprazole 2 mg PO DAILY 05/16/20 05/16/20 Atomoxetine HCl 40 mg PO DAILY 05/16/20 05/16/20 Atorvastatin [Lipitor] 10 mg PO DAILY 05/16/20 05/16/20 Triamterene-Hctz 37.5-25Mg 1 cap PO DAILY 05/16/20 05/16/20 [Dyazide 37.5-25 Capsule] buPROPion HCL [Wellbutrin XL] 300 mg PO DAILY 05/16/20 05/16/20 metFORMIN HCL [Glucophage] 1,000 mg PO BID 05/16/20 05/16/20 Allergies Allergy/AdvReac Type Severity Reaction Status Date / Time No Known Allergies Allergy Verified 06/09/22 10:44 Review of Systems ROS Statement: Those systems with pertinent positive or pertinent negative responses have been documented in the HPI. ROS Other: All systems not noted in ROS Statement are negative. Constitutional: Denies: fever, chills Respiratory: Denies: cough, dyspnea Cardiovascular: Reports: syncope. Denies: chest pain, palpitations, orthopnea, edema Gastrointestinal: Denies: abdominal pain, nausea, vomiting, diarrhea, melena, hematochezia Genitourinary: Denies: dysuria, hematuria Musculoskeletal: Denies: back pain Skin: Denies: rash Neurological: Denies: headache, weakness, numbness, paresthesias, confusion Past Medical History Past Medical History: Diabetes Mellitus, Hyperlipidemia, Hypertension History of Any Multi-Drug Resistant Organisms: None Reported Past Surgical History: Hysterectomy Past Anesthesia/Blood Transfusion Reactions: No Reported Reaction Past Psychological History: Anxiety, Depression Smoking Status: Former smoker Past Alcohol Use History: Occasional Past Drug Use History: None Reported General Exam Limitations: no limitations General appearance: alert, in no apparent distress Head exam: Present: atraumatic, normocephalic Eye exam: Present: normal appearance. Absent: scleral icterus, conjunctival injection ENT exam: Present: mucous membranes dry Neck exam: Present: normal inspection, full ROM Respiratory exam: Present: normal lung sounds bilaterally. Absent: respiratory distress, wheezes, rales, rhonchi, stridor Cardiovascular Exam: Present: regular rate, normal rhythm, normal heart sounds. Absent: systolic murmur, diastolic murmur, rubs, gallop GI/Abdominal exam: Present: soft. Absent: distended, tenderness, guarding, rebound, rigid, mass Extremities exam: Present: normal inspection, normal capillary refill. Absent: pedal edema, calf tenderness Back exam: Present: normal inspection. Absent: CVA tenderness (R), CVA tenderness (L) Neurological exam: Present: alert, oriented X3, CN II-XII intact. Absent: motor sensory deficit Skin exam: Present: warm, dry, intact, normal color. Absent: rash Course Vital Signs 06/09/22 06/09/22 10:40 12:29 Pulse Rate 60 60 Respiratory 18 18 Rate Blood Pressure 101/70 128/83 O2 Sat by Pulse 100 Oximetry EKG Findings - EKG Results: EKG: interpreted by ERMD, sinus rhythm, normal axis, normal QRS, normal ST/T EKG shows: bradycardia (Rate 58 bpm) Medical Decision Making - Lab Data Result diagrams: 06/09/22 10:54 06/09/22 10:54 Lab Results 06/09/22 06/09/22 06/09/22 Range/Units 10:42 10:54 10:54 WBC 10.3 (3.8-10.6) k/uL RBC 5.23 (3.80-5.40) m/uL Hgb 14.4 (11.4-16.0) gm/dL Hct 43.1 (34.0-46.0) % MCV 82.4 (80.0-100.0) fL MCH 27.5 (25.0-35.0) pg MCHC 33.4 (31.0-37.0) g/dL RDW 13.9 (11.5-15.5) % Plt Count 257 (150-450) k/uL MPV 7.4 Neutrophils % 75 % Lymphocytes % 15 % Monocytes % 7 % Eosinophils % 1 % Basophils % 1 % Neutrophils # 7.7 (1.3-7.7) k/uL Lymphocytes # 1.5 (1.0-4.8) k/uL Monocytes # 0.7 (0-1.0) k/uL Eosinophils # 0.1 (0-0.7) k/uL Basophils # 0.1 (0-0.2) k/uL Hypochromasia Slight PT 10.5 (9.0-12.0) sec INR 1.0 (<1.2) APTT 22.0 (22.0-30.0) sec D-Dimer 0.55 (<0.60) mg/L FEU Sodium (137-145) mmol/L Potassium (3.5-5.1) mmol/L Chloride (98-107) mmol/L Carbon Dioxide (22-30) mmol/L Anion Gap mmol/L BUN (7-17) mg/dL Creatinine (0.52-1.04) mg/dL Est GFR (CKD-EPI)AfAm (>60 ml/min/1.73 sqM) Est GFR (CKD-EPI)NonAf (>60 ml/min/1.73 sqM) Glucose (74-99) mg/dL POC Glucose (mg/dL) 137 H (70-110) mg/dL POC Glu Cell Lead ID Fetterly, Mirna Calcium (8.4-10.2) mg/dL Magnesium (1.6-2.3) mg/dL Total Bilirubin (0.2-1.3) mg/dL AST (14-36) U/L ALT (4-34) U/L Alkaline Phosphatase (38-126) U/L Troponin I (0.000-0.034) ng/mL Total Protein (6.3-8.2) g/dL Albumin (3.5-5.0) g/dL 06/09/22 06/09/22 Range/Units 10:54 10:54 WBC (3.8-10.6) k/uL RBC (3.80-5.40) m/uL Hgb (11.4-16.0) gm/dL Hct (34.0-46.0) % MCV (80.0-100.0) fL MCH (25.0-35.0) pg MCHC (31.0-37.0) g/dL RDW (11.5-15.5) % Plt Count (150-450) k/uL MPV Neutrophils % % Lymphocytes % % Monocytes % % Eosinophils % % Basophils % % Neutrophils # (1.3-7.7) k/uL Lymphocytes # (1.0-4.8) k/uL Monocytes # (0-1.0) k/uL Eosinophils # (0-0.7) k/uL Basophils # (0-0.2) k/uL Hypochromasia PT (9.0-12.0) sec INR (<1.2) APTT (22.0-30.0) sec D-Dimer (<0.60) mg/L FEU Sodium 137 (137-145) mmol/L Potassium 4.4 (3.5-5.1) mmol/L Chloride 104 (98-107) mmol/L Carbon Dioxide 21 L (22-30) mmol/L Anion Gap 12 mmol/L BUN 17 (7-17) mg/dL Creatinine 1.40 H (0.52-1.04) mg/dL Est GFR (CKD-EPI)AfAm 46 (>60 ml/min/1.73 sqM) Est GFR (CKD-EPI)NonAf 40 (>60 ml/min/1.73 sqM) Glucose 140 H (74-99) mg/dL POC Glucose (mg/dL) (70-110) mg/dL POC Glu Cell Lead ID Calcium 8.4 (8.4-10.2) mg/dL Magnesium 2.1 (1.6-2.3) mg/dL Total Bilirubin 1.1 (0.2-1.3) mg/dL AST 19 (14-36) U/L ALT 22 (4-34) U/L Alkaline Phosphatase 94 (38-126) U/L Troponin I <0.012 (0.000-0.034) ng/mL Total Protein 6.8 (6.3-8.2) g/dL Albumin 4.1 (3.5-5.0) g/dL Disposition Clinical Impression: Syncope Disposition: HOME SELF-CARE Condition: Good Instructions (If sedation given, give patient instructions): Syncope (ED) Is patient prescribed a controlled substance at d/c from ED?: No Referrals: Moe Trevizo DO [Primary Care Provider] - 1-2 days
[2022-06-09 11:09] LABS: Basophils # (A) 0.1 k/uL (0-0.2); Basophils % (A) 1 %; Eosinophils # (A) 0.1 k/uL (0-0.7); Eosinophils % (A) 1 %; HCT 43.1 % (34.0-46.0); HGB 14.4 gm/dL (11.4-16.0); Hypochromasia Slight; Lymphocytes # (A) 1.5 k/uL (1.0-4.8); Lymphocytes % (A) 15 %; MCH 27.5 pg (25.0-35.0); MCHC 33.4 g/dL (31.0-37.0); MCV 82.4 fL (80.0-100.0); Mean Platelet Volume 7.4; Monocytes # (A) 0.7 k/uL (0-1.0); Monocytes % (A) 7 %; Neutrophils # (A) 7.7 k/uL (1.3-7.7); Neutrophils % (A) 75 %; Platelet Count 257 k/uL (150-450); RBC 5.23 m/uL (3.80-5.40); RDW 13.9 % (11.5-15.5); WBC 10.3 k/uL (3.8-10.6)
--- NOTE | 2022-06-09 11:20 | XR ---
EXAMINATION TYPE: XR chest 2V DATE OF EXAM: 06/09/2022 COMPARISON: None HISTORY: 62-year-old female with syncope TECHNIQUE: PA and lateral views FINDINGS: The cardiomediastinal silhouette, aorta, and pulmonary vasculature are within normal limits. Lungs an d pleural spaces are clear. DISH mid thoracic spine. IMPRESSION: No acute cardiopulmonary process. 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
[2022-06-09 11:38] LABS: Albumin 4.1 g/dL (3.5-5.0); Calcium 8.4 mg/dL (8.4-10.2); Magnesium 2.1 mg/dL (1.6-2.3); Potassium 4.4 mmol/L (3.5-5.1); Total Bilirubin 1.1 mg/dL (0.2-1.3); Total Protein 6.8 g/dL (6.3-8.2)
[2022-06-09 11:47] LABS: Prothrombin Time 10.5 sec (9.0-12.0)
[2022-06-09 14:04] VITALS: BP 152/83; PULSE 60; TEMP 98.6
== END 2022-06-09 14:27 | disposition home or self-care (01) ==
LOC: EC 10:39
DX: R55 Syncope and collapse (principal); I10 Essential (primary) hypertension; E11.9 Type 2 diabetes mellitus without complications; E78.5 Hyperlipidemia, unspecified; F41.9 Anxiety disorder, unspecified; F32.A Depression, unspecified; Z87.891 Personal history of nicotine dependence; Z79.84 Long term (current) use of oral hypoglycemic drugs; Z79.899 Other long term (current) drug therapy; Z79.811 Long term (current) use of aromatase inhibitors
CPT/HCPCS: 36415; 71046; 80053; 83735; 84484; 85025; 85379; 85610; 85730; 93005; 99284

== ENCOUNTER → 2022-06-23 | Outpatient (CLI) | payer BC ==
--- NOTE | 2022-06-24 08:36 | MM ---
Reason for Exam: Screening (asymptomatic). Last mammogram was performed 1 year(s) and 2 month(s) ago. Patient History: Menarche at age 10. First Full-Term at age 22. Left ovary removed at age 47. Right ovary removed at age 47. Hysterectomy at age 47. Postmenopausal. Patient used Estrogen for 2 years. Patient used Hormonal Contraceptives for 2 years. Maternal grandmother had breast cancer. Risk Values: Destinee 5 year model risk: 1.4%. NCI Lifetime model risk: 5.8%. Prior Study Comparison: 08/28/2015 Bilateral Screening Mammogram, [facility]. 09/17/2016 Bilateral Screening Mammogram, [facility]. 10/27/2017 Bilateral Screening Mammogram, [facility]. 11/23/2018 Bilateral Screening Mammogram, [facility]. 02/14/2020 Bilateral Screening Mammogram, [facility]. 05/15/2021 Bilateral Screening Mammogram, [facility]. Tissue Density: There are scattered fibroglandular densities. Findings: Analyzed By CAD. There is no suspicious group of microcalcifications or new suspicious mass in either breast. Overall Assessment: Benign, BI-RAD 2 Management: Screening Mammogram of both breasts in 1 year. A clinical breast exam by your physician is recommended on an annual basis and results should be correlated with mammographic findings. Electronically signed and approved by: Robert Barbosa M.D. Radiologis
== END | disposition home or self-care (01) ==
LOC: RADMAMWWP 15:18
PROVIDERS: ATTEND Family Medicine
DX: Z12.31 Encounter for screening mammogram for malignant neoplasm of breast (principal); Z78.0 Asymptomatic menopausal state; Z80.3 Family history of malignant neoplasm of breast
CPT/HCPCS: 77067

== ENCOUNTER → 2022-10-30 | Outpatient (CLI) | payer BC ==
[2022-10-30 21:25] LABS: Cryptosporidium Antigen Negative (Negative)
== END | disposition home or self-care (01) ==
LOC: LABWHC1 09:57
PROVIDERS: ATTEND Family Medicine
DX: R19.7 Diarrhea, unspecified (principal)
CPT/HCPCS: 87045; 87046; 87328; 87329

== ENCOUNTER 2023-07-21 09:45 | Day surgery (SDC) | payer MEDICARE ==
[~2023-07-21 09:45] MED LIST: LACTATED RINGERS 1,000 ML IV SCH; LIDOCAINE 1% (10MG/ML) FOR IV START INTRADERMA PRN
[2023-07-21] MEDS ORDERED: LACTATED RINGERS 1,000 ML IV ONE (10:04)
[2023-07-21 10:13] LABS: Glucose,Whole Blood 102 mg/dL (70-110)
[2023-07-21 10:18] VITALS: TEMP 99.1
[2023-07-21] MEDS ORDERED: PROPOFOL 10 MG/ML 20 ML VIAL IV ONE (10:34)
--- NOTE | 2023-07-21 10:51 | P.PCN ---
Date of Procedure: 07/21/23 Procedure(s) Performed: BRIEF HISTORY: Patient is a 61-year-old pleasant white female scheduled for an elective colonoscopy as a part of screening for colon cancer. PROCEDURE PERFORMED: Colonoscopy. PREOPERATIVE DIAGNOSIS: Screening for colon cancer. IV sedation per Anesthesia. PROCEDURE: After informed consent was obtained, the patient, was brought into the endoscopy unit. IV sedation was administered by Anesthesia under continuous monitoring. Digital rectal examination was normal. Initially the Olympus CF-160 flexible video colonoscope was then inserted in the rectum, gradually advanced into the cecum without any difficulty. Careful examination was performed as the scope was gradually being withdrawn. Ileocecal valve and the appendiceal orifice were visualized and appeared normal. Prep was excellent. Mucosa of the cecum, ascending colon, transverse colon, descending colon, sigmoid colon, and rectum appeared normal. Scattered sigmoid diverticulosis. Retroflexion was performed in the rectum and no lesions were seen. The patient tolerated the procedure well. IMPRESSION: Normal-appearing colon from rectum to cecum no evidence of colorectal neoplasia . Scattered sigmoidal diverticulosis. RECOMMENDATIONS: Findings of this examination were discussed with the patient as well as her family. She was advised to have a repeat screening colonoscopy in 10 years.
[2023-07-21 11:06] VITALS: RESP 16
[2023-07-21 11:29] VITALS: BP 121/75; PULSE 82
== END 2023-07-21 11:31 ==
LOC: ORWHC2ENDO 09:45
PROVIDERS: ATTEND Internal Medicine Gastroenterology
DX: Z12.11 Encounter for screening for malignant neoplasm of colon (principal); K57.30 Diverticulosis of large intestine without perforation or abscess without bleeding; I10 Essential (primary) hypertension; E78.5 Hyperlipidemia, unspecified; G47.33 Obstructive sleep apnea (adult) (pediatric); E11.9 Type 2 diabetes mellitus without complications; F41.9 Anxiety disorder, unspecified; F32.A Depression, unspecified; Z79.899 Other long term (current) drug therapy
CPT/HCPCS: J2704; G0121

== ENCOUNTER → 2024-06-01 | Outpatient (CLI) | payer MEDICARE ==
--- NOTE | 2024-06-02 08:56 | MM ---
Reason for Exam: Screening (asymptomatic). Last mammogram was performed 1 year(s) and 11 month(s) ago. Patient History: Menarche at age 10. First Full-Term at age 22. Left ovary removed at age 47. Right ovary removed at age 47. Hysterectomy at age 47. Postmenopausal. Patient used Estrogen for 2 years. Patient used Hormonal Contraceptives for 2 years. Maternal grandmother had breast cancer. Risk Values: [place]inee 5 year model risk: 1.5%. NCI Lifetime model risk: 5.6%. Prior Study Comparison: 02/14/2020 Bilateral Screening Mammogram, [facility]. 05/15/2021 Bilateral Screening Mammogram, [facility]. 06/23/2022 Bilateral MG screening mammo w CAD, [facility]. Tissue Density: There are scattered areas of fibroglandular density. Findings: Analyzed By CAD. Right breast: There is no suspicious group of microcalcifications or new suspicious mass. Left breast: There is no suspicious group of microcalcifications or new suspicious mass. Overall Assessment: Negative, BI-RAD 1 Management: Screening Mammogram of both breasts in [address] [facility] will attempt to contact patient to return for supplemental views and ultrasound if indicated. Patient should continue monthly self-breast exams. A clinical breast exam by your physician is recommended on an annual basis. This exam should not preclude additional follow-up of suspicious palpable abnormalities. Note on Destinee scores and lifetime risk: 1. A Destinee score greater than 3% is considered moderate risk. If this is the case, consider specialist referral to assess eligibility for a risk reducing agent. 2. If overall lifetime risk for the development of breast cancer is 20% or higher, the patient may qualify for future screening with alternating mammogram and breast MRI. [facility], , 06/02/2024 8:53 AM. Electronically signed and approved by: Kwesi Whyte DO
== END | disposition home or self-care (01) ==
LOC: RADMAMWWP 07:58
PROVIDERS: ATTEND Family Medicine
CPT/HCPCS: 77063; 77067